=== PATIENT | female | born 1990 | race Caucasian/White ===

== ENCOUNTER → 2021-03-05 | Day surgery (SDC) | payer OTHER ==
[2021-03-02 10:20] VITALS: BMI 23.7
[~2021-03-05] MED LIST: Fentanyl 100 MCG/2 ML VIAL ONE; Ketorolac Tromethamine 30 MG/ML VIAL ONE; Lidocaine 1% PF 5 ML VIAL ONE; Lorazepam 2 MG/ML VIAL ONE; Midazolam HCl 2 mg/2 ml Vial ONE; Ondansetron PF 4 MG/2 ML Vial ONE; PROPOFOL 200 MG/20 ML VIAL ONE; Succinylcholine 200 MG/10 ml SYRINGE FS ONE
== END ==
LOC: SDC/OP 10:45
PROVIDERS: ATTEND Family Medicine
DX: M51.36 Other intervertebral disc degeneration, lumbar region (principal); M51.26 Other intervertebral disc displacement, lumbar region; Z79.899 Other long term (current) drug therapy; Z88.2 Allergy status to sulfonamides; Z88.6 Allergy status to analgesic agent; Z88.8 Allergy status to other drugs, medicaments and biological substances
CPT/HCPCS: 72148; 93005; 93010; J2060; J2250; J3010; J7620